=== PATIENT | male | born 1960 | race Caucasian/White ===

== ENCOUNTER 2022-08-12 14:49 | Outpatient (REF) | payer MEDICARE, SELFPAY ==
--- NOTE | ~2022-08-12 | XR_ITS ---
EXAMINATION: XR LUMBOSACRAL SPINE WITH OBLIQUES CLINICAL INFORMATION: Postlaminectomy syndrome COMPARISON: None available. TECHNIQUE: AP, both oblique, and lateral views of the lumbar spine. Lateral view of the lumbosacral junction. FINDINGS: There is normal lumbar lordosis. There are bilateral pedicle screws at L4, S1 and unilateral pedicle screw at L5 vertebra with interconnecting rods for posterior circulation. There are disc prostheses at #5ml/s1 disc level for fusion. Mild loss of L2-L3 disc level is noted. No visible fracture, lytic or sclerotic process. SI joints are symmetrical. There is minimal levoscoliosis centered at L3 vertebra. XR/XR lumbar spine 6V w bending IMPRESSION: 1. L4-L5 and L5-S1 disc prostheses and posterior hardware for fusion. No hardware malfunction seen. 2. Mild degenerative disc changes L2-L3 disc level. No visible acute fracture or dislocation seen.
== END 2022-08-12 14:50 | disposition home or self-care (01) ==
LOC: HO.XRAY 14:49
PROVIDERS: PCP Internal Medicine; Visit Provider Nurse Practitioner Family
DX: M51.36 Other intervertebral disc degeneration, lumbar region (principal); M54.16 Radiculopathy, lumbar region; M96.1 Postlaminectomy syndrome, not elsewhere classified; M48.061 Spinal stenosis, lumbar region without neurogenic claudication
CPT/HCPCS: 72114; 99202

== ENCOUNTER 2022-10-03 12:57 | Outpatient (AMB) | payer MEDICARE, SELFPAY ==
--- NOTE | 2022-10-03 13:04 | MHC.OFFVIS ---
Intake Vital Signs 10/03/22 13:10 Height 5 ft 7.5 in Weight 200 lb BMI 30.9 BP 150/92 H Blood Pressure Location Lt brachial Position Sitting Pulse 107 H Pulse Source Pulse Oximeter Pulse Oximetry (%) 95 Oxygen Delivery Method Room Air Intake Visit Reasons: Increasing Low Back Pain Intake Note: Pain today 12/03 Prop Drawer Required: No Accompanied by: Spouse Allergies duloxetine Allergy (Unknown, Verified 10/03/22 13:10) jittery venlafaxine [From Effexor] Allergy (Unknown, Verified 10/03/22 13:10) mood changes IV contrast Allergy (Unknown, Uncoded 08/12/22 15:13) Rash paxil Allergy (Unknown, Uncoded 08/12/22 15:13) Diarrhea HPI HPI Comments History of Present Illness Details Patient presents today for follow up for worsening right sided low back pain and increasing right leg pain. Patient completed his lumbar spine xray which showed L4-L5 and L5-S1 disc prostheses and posterior hardware for fusion. No hardware malfunction seen. Mild degenerative disc changes L2-L3 disc level. MRI lumbar spine has been rescheduled to 10/15/22 with IV contrast premedication. Patient reports increase in pain with any coughing, sneezing, movements or bowel movements. He had periods of severe back pain after short walking with his back locking up and requiring him to rest for 1-3 days. Reports progressive tingling, numbness and weakness of RLE. He rates his pain today at 9-10/10 and has not been able to sleep at night due to pain. Patient reports curled up sided position alleviates his pain a little bit. Denies any bladder or bowel incontinence or saddle anesthesia. PRIOR: Patient is a pleasant 61 years old male with history of failed back syndrome, s/p L4-L5 laminectomy in 2007, macro laminectomy and external neurolysis right L1-L5, laminectomies left L4-L5 and bilateral L5-S[place] [address] Hassan. MRI in 2013 showed postsurgical findings at L4 and L5 with mass effect on exiting L5 nerve root on the right, moderate to severe foraminal stenosis. At that time he saw Dr. Patton on 09/2008 and 08/2013 and no surgical intervention was recommended. Patient received epidural injections at [facility] in 2008 and 2013. Denies any recent trauma, injury or falls. Patient reports his back pain is axial and also radiates to his right lower extremity laterally affecting his right hip and right knee. Reports numbness, tingling and weakness of right lower extremity. Pain affects his daily activities, mobility, sleep, and quality of life. Pain is constant and frequently awakens him at night. Denies lumbar spine MRI imaging since 2013. He recently returned from [place] where he resided for 2 years. He does report at that time in [place] he fell by tripping on a rug and hit his right hip and shoulder and since then back pain has been increasing for the past 6 months. Patient reports lumbar xrays in [place] after fall were negative. These reports are not available today. Patient reports his balance and gait are weak and he would need to PT for strengthening. However due to significant back pain with radiculopathy, he is not able to participate in PT at this time. We will proceed with updating his back x-rays and MRI. Denies any fever, weight loss, bladder or bowel incontinence or saddle anesthesia. Location Low back pain radiating into RLE laterally Duration Chronic pain worsening for past 5 months Characteristics of symptom or complaint Cramping, shooting, numbness, tingling, aching Aggravating or associated factors Walking, prolonged sitting or standing, changing positions Relieving factors Gabapentin, heat therapy, activity modifications, Treatment Back injections, physical therapy, cane [facility] Medical History (Updated 10/03/22 @ 13:43 by LIBBY Diggs) Adenoma Arthritis Failed back syndrome GERD (gastroesophageal reflux disease) Herpes zoster History of cannabis abuse History of shingles Hypertension Spondylosis Surgical History H/O laminectomy Family History Father Lung cancer Family/Other Colon cancer Social History Alcohol intake: current Alcohol intake frequency: holidays/special occasions only Tobacco use type: Cigarette Cigarette Packs Per Day: 1 Review of Systems Const All systems reviewed & are unremarkable except as noted in HPI and below Physical Exam Vital Signs: Last Vital Signs Pulse 107 H 10/03/22 13:10 BP 150/92 H 10/03/22 13:10 Pulse Ox 95 10/03/22 13:10 Oxygen Delivery Method Room Air 10/03/22 13:10 BMI result Body Mass Index 30.9 General: Appears afebrile. Alert and oriented. Mood and affect appropriate. Follows and participates in conversation appropriately. Respiratory effort is unlabored. No cough. Able to transition from sit to stand unassisted. Uses cane with ambulation. Back/Spine/Pelvis Other: Antalgic gait with limping. Utilizes cane with transfers and walking. Lumbar flexion and extension reproduce moderate to severe pain, worse with bending. Limited ROM due to pain. Demonstrates 5/5 left and 4/5 right strength of quadriceps bilaterally as well as flexion/dorsiflexion of bilateral feet against resistance. 2+ pedal pulses bilaterally. Seated straight leg rise with dorsiflexion positive on the right. Valsalva maneuver positive. Unable to proceed with exam due to pain exacerbation. Cervical Spine: cervical muscular tenderness and No Cervical spine tenderness Thoracic/Lumbar Spine: thoracic and lumbar spine normal to inspection, Thoracic/lumbar spine scar(s), Lasegue's sign positive on the right and localized, pain with thoraco-lumbar ROM, paraspinal muscle tenderness on the right greater than left, thoraco-lumbar ROM limited, No thoracic spinal tenderness and lumbar spinal tenderness Pelvis: no sciatic notch tenderness Sacroiliac joints: bilaterally nontender Results Reviewed Results Reviewed: XR LUMBOSACRAL SPINE WITH OBLIQUES 08/12/22 FINDINGS: There is normal lumbar lordosis. There are bilateral pedicle screws at L4, S1 and unilateral pedicle screw at L5 vertebra with interconnecting rods for posterior circulation. There are disc prostheses at #5ml/s1 disc level for fusion. Mild loss of L2-L3 disc level is noted. No visible fracture, lytic or sclerotic process. SI joints are symmetrical. There is minimal levoscoliosis centered at L3 vertebra. IMPRESSION: 1. L4-L5 and L5-S1 disc prostheses and posterior hardware for fusion. No hardware malfunction seen. 2. Mild degenerative disc changes L2-L3 disc level. No visible acute fracture or dislocation seen. Per referral note: lumbar spine MRI in 2013 showed post-surgical findings at L4 and L5 with mass effect on exiting L5 nerve root on the right, moderate to severe foraminal stenosis. Assessment & Plan Assessment & Plan (1) Lumbar foraminal stenosis: Code(s): M48.061 - Spinal stenosis, lumbar region without neurogenic claudication (2) Lumbar radicular pain: Code(s): M54.16 - Radiculopathy, lumbar region (3) Spinal stenosis, lumbar region with neurogenic claudication: Code(s): M48.062 - Spinal stenosis, lumbar region with neurogenic claudication (4) Lumbar spondylosis: Code(s): M47.816 - Spondylosis without myelopathy or radiculopathy, lumbar region Plan 1. Lumbar spine imaging reviewed with patient and his . 2. Proceed with MRI of the lumbar spine to assess for neural integrity and compression as scheduled on 10/15/22. IV contrast premedication reviewed with patient. Will refer to [facility] for progressively worsening back and right leg pain. 3. Scripts provided short script for oxycodone for severe pain only. Side effects reviewed with patient. Continue lidocaine patches, cyclobenzaprine, heat therapy, activity modifications. 4. Patient is aware to call if pain worsens or if he develops any red flag symptoms to seek emergency care. Patient denies any cauda equina syndrome symptoms at this time. All questions were answered and the patient is in agreement with the treatment plan. Will follow up for MRI or sooner if needed. Orders: Referrals Neurosurgery Referral M48.061 - Spinal stenosis, lumbar region without neurogenic claudication, M48.062 - Spinal stenosis, lumbar region with neurogenic claudication, M54.16 - Radiculopathy, lumbar region Medications: New oxycodone Partial Fill upon patient request. 5 mg PO BID 5 days PRN 10 tabs 0RF pain, severe M48.061 - Spinal stenosis, lumbar region without neurogenic claudication Refilled cyclobenzaprine 5 - 10 mg (1 - 2 x 5 mg) PO BEDTIME 30 days PRN 60 tabs 1RF muscle spasm M51.36 - Other intervertebral disc degeneration, lumbar region, M54.16 - Radiculopathy, lumbar region, M96.1 - Postlaminectomy syndrome, not elsewhere classified Discontinued methylprednisolone (Medrol (Jose)) Discontinued Reason: Patient Completed Course PO PER PKG DIR 21 ea 0RF pain M51.36 - Other intervertebral disc degeneration, lumbar region, M54.16 - Radiculopathy, lumbar region, M96.1 - Postlaminectomy syndrome, not elsewhere classified Coding Level of Care Code Est Pt Level 4 (74959) Diagnoses Lumbar foraminal stenosis M48.061 Lumbar radicular pain M54.16 Spinal stenosis, lumbar region with neurogenic claudication M48.062 Lumbar spondylosis M47.816
[2022-10-03 13:10] VITALS: BP 150/92; PULSE 107; O2SAT 95; BMI 30.9
== END 2022-10-03 13:24 | disposition home or self-care (01) ==
PROVIDERS: PCP Internal Medicine; Visit Provider Nurse Practitioner Family
DX: M48.061 Spinal stenosis, lumbar region without neurogenic claudication (principal); M54.16 Radiculopathy, lumbar region; M48.062 Spinal stenosis, lumbar region with neurogenic claudication; M47.816 Spondylosis without myelopathy or radiculopathy, lumbar region
CPT/HCPCS: 99214

== ENCOUNTER → 2022-10-03 12:57 | Outpatient (BNVA) | payer MEDICARE, SELFPAY | PROVIDERS: PCP Internal Medicine; Visit Provider Nurse Practitioner Family | DX: M48.062 Spinal stenosis, lumbar region with neurogenic claudication (principal); M47.16 Other spondylosis with myelopathy, lumbar region | CPT/HCPCS: 99212 ==

== ENCOUNTER 2022-10-15 14:03 | Outpatient (REF) | payer MEDICARE, SELFPAY | END 2022-10-15 14:04 | disposition home or self-care (01) | LOC: HO.MRI 14:03 | PROVIDERS: PCP Internal Medicine; Visit Provider Nurse Practitioner Family | DX: Z13.89 Encounter for screening for other disorder (principal) ==

== ENCOUNTER 2022-11-29 07:18 | Outpatient (REF) | payer OTHER, SELFPAY | END 2022-11-29 07:19 | disposition home or self-care (01) | LOC: HO.LAB 07:18 | PROVIDERS: PCP Internal Medicine; Visit Provider Internal Medicine | DX: Z12.5 Encounter for screening for malignant neoplasm of prostate (principal); E78.00 Pure hypercholesterolemia, unspecified; I10 Essential (primary) hypertension; M51.16 Intervertebral disc disorders with radiculopathy, lumbar region; M75.41 Impingement syndrome of right shoulder; Z86.010 Personal history of colon polyps | CPT/HCPCS: 36415; 80053; 80061; 84153; 84443; 85025 ==

== ENCOUNTER 2024-04-27 06:52 | Outpatient (REF) | payer MEDICARE, SELFPAY ==
--- OUTSIDE RECORDS SUMMARY | 2024-04-27 06:56 | XMS_ITS | Clinical Summary ---
[facility] Address [address] [place] [address] Care Team Providers Care Multi Care Technician Name Role Phone Maribeth Ireland MD Primary Care Provider Social History Tobacco Use Types Packs/Day Years Used Date Smoking Tobacco: Never Assessed Sex and Gender Information Value Date Recorded Sex Assigned at Not on file Gender Identity Not on file Sexual Orientation Not on file Plan of Treatment Health Maintenance Due Date Last Done Comments Hepatitis C Screening 1960 COVID-19 Vaccine (#1) 04/21/1960 Depression Screening 1971 Preventative Health Evaluation 10/19/1977 DTap / Tdap / Td (1 - Tdap) 10/19/1978 Colon Cancer Screening (Colonoscopy) 10/19/2004 Shingrix-Zoster Vaccine (1 of 2) 10/19/2009 Influenza Vaccine (#1) 2023 Pneumococcal Vaccine (1 of 1 - PCV) 10/19/2024 RSV Adult > 60+ Yrs or Pregn ant (1 - 1-dose 75+ series) 10/19/2034 Hepatitis B Vaccines Aged Out No long er eligible based on patient's age to complete this topic Pneumococcal Vaccine Aged Out No long er eligible based on patient's age to complete this topic RSV Ped < 20 months Aged Out No longe r eligible based on patient's age to complete this topic Care Teams Multi Care Technician Relationship Specialty Start Date End Date Maribeth Ireland MD [address] [id number] PCP - General Internal Medicine 10/01/19
--- OUTSIDE RECORDS SUMMARY | 2024-04-27 06:56 | XMS_ITS | Clinical Summary ---
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 06/25/2023 Active rosuvastatin (CRESTOR) 40 mg tablet TAKE 1 TABLET BY MOUTH AT BEDTIME 06/25/2023 Active sertraline (ZOLOFT) 50 mg tablet Take 1 Tablet by mouth daily. 06/25/2023 Active nicotine (NICODERM CQ) 14 mg/[address] 1 Patch onto the skin every 24 hours. Active gabapentin (NEURONTIN) 800 mg tablet Take 800 mg by mouth 3 times daily. Active multivitamin with minerals tablet Take 1 tablet by mouth 1 (one) time each day. Active Active Problems Problem Noted Date Diagnosed Date Bilateral hip pain 06/24/2023 Overview (11/25/2023): Last Assessment & Plan: Mr. Jean describes bilateral hip pain. He had some reproduction of his pain with palpation of the greater trochanters but also had significant reproduction of his pain with external rotation of each hip. Get some x-rays of the hips. If there are significant findings on the x-rays, we can talk about a referral to orthopedics. Bilateral sacroiliitis 06/24/2023 Overview (11/25/2023): Last Assessment & Plan: Mr. Weiss describes pain in both buttocks with radiations to the hips and posterolateral thighs. He had some reproduction of his pain with palpation of the SI joints. He also had a positive Yemi's maneuver, a positive Gaenslen's test, and a positive thigh thrust test. I think he would benefit from an SI joint injection. We will refer him to physiatry for consideration of an injection. Chronic low back pain with bilateral sciatica Overview (11/25/2023): Last Assessment & Plan: Mr. Weiss describes low back pain with radiation to both buttocks, hips, and posterolateral thighs. X-rays of the lumbar spine from today show evidence of prior L4-S1 fusion. There is no instability. The hardware all appears to be intact. I gave him a prescription for physical therapy and we are going to refer him to physiatry. He will follow-up with us in about 6 weeks for repeat evaluation. If his pain is persistent, we can consider an MRI of the lumbar spine at that time. Trochanteric bursitis of both hips 06/24/2023 Overview (11/25/2023): Last Assessment & Plan: Mr. Weiss describes pain in both hips with radiation down the posterolateral thighs. This pain was reproduced with palpation of the greater trochanters. I will send him for x-rays of the hips and then we will request a referral to physiatry. Pseudoarthrosis of lumbar spine 11/16/2021 Overview (11/25/2023): Last Assessment & Plan: Mr. Fregoso is here for a 1 year follow-up after his revision of an L4-S1 fusion on 11/13/2020. This was done for pseudoarthrosis with loosening of hardware on the right-hand side. He has had improvements but is never pain-free. His walking tolerance is 1 to 2 miles when the back pain but significantly increases. Occasionally there is pain to his legs right worse than left which may cause him to lose balance but he denies ever falling. He has remained smoke-free and takes gabapentin. On exam, seated SLR is positive on the right for moderate pain. Strength is 5/5, sensation to light touch intact, gait is steady. Review of the lumbar spine CT from today shows all hardware to be intact without haloing. There is some bridging bone through the interbody graft at L4-5 and nearly bridging at L5-S1. There appears to be some posterolateral bone as well. There is diffuse spondylosis throughout. I encouraged Mr. Fregoso to continue daily walking for exercise, back and leg strengthening. He can add Tylenol or use a heating pad after the walks. There is no new focus at which I would recommend surgery but, he does have diffuse degenerative disc disease and is likely to always have some back pain. He is welcome to contact us if there are any significant changes or if he has concerns. Immunizations Name Administration Dates Next Due Influenza trivalent, with pr eservative (Fluzone; Afluria) 6mo and older 01/23/2020 Surgical History Surgery Date Site/Laterality Comments BACK SURGERY PROCEDURE: HISTORICAL BACK SURGERY; COMMENT: 2007 L4-5, & L4-S1 with Dr. Hassan BACK SURGERY 10/25/2019 PROCEDURE: HISTORICAL BACK SURGERY; COMMENT: L4-5 L5-S1 TLIF OTHER SURGICAL HISTORY 11/13/2020 PROCEDURE: ANESTHESIA FOR BACK SKIN SURGERY; COMMENT: exploration and revision L4-S1 Medical History Medical History Date Comments Depressive disorder DX:Depressiv e disorder Leg weakness DX:Leg weakness Joint pain DX:Joint pain Rheumatoid arthritis (CMS/HCC) D X:Rheumatoid arthritis (HCC) Leg pain DX:Leg pain Social History Tobacco Use Types Packs/Day Years Used Date Smoking Tobacco: Former Smokeless Tobacco: Never Sex and Gender Information Value Date Recorded Sex Assigned at Not on file Legal Sex Male 1:47 AM EST Gender Identity Not on file Sexual Orientation Not on file Obstetrics History Last Filed Vital Signs Vital Sign Reading Time Taken Comments Blood Pressure 140/80 04/03/2023 1:32 PM EST Pulse 75 04/03/2023 1:32 PM EST Temperature - - Respiratory Rate - - Oxygen Saturation - - Inhaled Oxygen Concentration - - Weight 90.7 kg (200 lb) 12/25/2023 11:00 AM EDT Height 171.5 cm (5' 7.5 ) 12/25/2023 11:00 AM ED T Body Mass Index 30.86 12/25/2023 11:00 AM EDT Plan of Treatment Health Maintenance Due Date Last Done Comments DTaP,Tdap,and Td Vaccines (1 - Tdap) 10/19/1978 Pneumococcal Vaccine: 50+ Years (1 of 1 - PCV) 10/19/2009 Zoster Vaccines (1 of 2) 10/19/2009 Cholesterol Screening (Lipid Panel) 01/27/2022 Colorectal Cancer Screening: Colonoscopy 01/27/2022 Depression Screening 01/27/2022 HIV Screening 01/27/2022 Hepatitis C Screening 01/27/2022 Medicare Annual Wellness Visit 01/27/2022 Social Influencers of Health Screening 01/27/2022 COVID-19 Vaccine (3 - 2023-2 5 season) 2023 06/22/2020, 05/25/2020 Influenza Vaccine (#1) 2023 01/23/2020 RSV Immunization Patients 60 + Years Old (1 - 1-dose 75+ series) 10/19/2034 HIB Vaccines Aged Out No longer eligi ble based on patient's age to complete this topic HPV Vaccines Aged Out No longer eligi ble based on patient's age to complete this topic Hepatitis A Vaccines Aged Out No long er eligible based on patient's age to complete this topic Hepatitis B Vaccines Aged Out No long er eligible based on patient's age to complete this topic IPV Vaccines Aged Out No longer eligi ble based on patient's age to complete this topic MMR Vaccines Aged Out No longer eligi ble based on patient's age to complete this topic Meningococcal ACWY Vaccine Aged Out N o longer eligible based on patient's age to complete this topic Meningococcal B Vacine Aged Out No lo nger eligible based on patient's age to complete this topic Pneumococcal Vaccine: Pediatrics (0 to 5 Years) and At-Risk Patients (6 to 64 Years) Aged Out No longer eligible b ased on patient's age to complete this topic RSV Immunization Patients Under 20 months Aged Out No longer eligible b ased on patient's age to complete this topic Varicella Vaccines Aged Out No longer eligible based on patient's age to complete this topic Insurance [employer] MED[employer]ARE ADVANTAGE Care Teams 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
--- OUTSIDE RECORDS SUMMARY | 2024-04-27 06:57 | XMS_ITS | Data Portability ---
Author Organization [facility] PAIN OFFICE Address [address],[facility] [address] [place] [address] Care Team Providers Care Network And Threat Support Specialist Name Role Phone MAXIME SRIDHAR Referring Provider HILARIO PETE Primary Care Provider [phone] Assessment Encounter Date Assessment Date Assessment LastModified by Organization Details LastModified Time 01/20/2017 01/20/2017 Sathish Weiss is a 56 year old man with low back pain radiating into both lower extremities, right is greater than left with numbness in his right lower extremity. He is S/P two back surgreies with a recent exacerbation of his pain. On exam ,he has pain on flexion. Straight leg raising test is positive on the right. 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 Trial of Lumbar epidural steroid injections under fluoroscopic guidance was recommended. The risks and benefits of the procedure were discussed in detail. He wishes to proceed. An appointment has been booked for the same. 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 [email or web address] Not available 01/26/2017 11:12:51 03/11/2017 03/11/2017 Sathish Weiss is a 56 year old man with low back pain radiating into both lower extremities, right is greater than left with numbness in his right lower extremity. He is S/P two back surgeries with a recent exacerbation of his pain. On exam ,he has pain on flexion. Straight leg raising test is positive on the right. 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 He is here for a trial of Lumbar epidural steroid injections under fluoroscopic guidance . The risks and benefits of the procedure were discussed in detail. He wishes to proceed. He needs to follow up in four weeks to assess the benefits of the injection. [email or web address] Not available 03/13/2017 11:06:29 Plan of Treatment Reminders Order Date Submit Date Provider Last Modified By Organization Details Last Modified Time Details Appointments None record ed. Lab None record ed. Referral None record ed. Procedures None record ed. Surgeries None record ed. Imaging None record ed. Medication Orders None record ed. Patient TargetsNo targets recorded. Patient Instructions Encounter Date Encounter Id Patient Instructions Last Modified By Organization Details Last Modified Time 01/20/2017 [id number] He was advised against bed rest lasting longer than four days and to continue activities as tolerated. Benefits of smoking cessation were discussed with him. [email or web address] Not available 01/26/2017 11:13:42 03/11/2017 [id number] He was advised against bed rest lasting longer than four days and to continue activities as tolerated. Benefits of smoking cessation were discussed with him. [email or web address] Not available 03/13/2017 11:05:28 Reason for Referral None Reported. Problems Name Problem SNOMED Code Status Onset Date Resolution Date Notes Provider Name and Address Organization Details Recorded Time Lumbar post-laminecto my syndrome 939346898 Active 2016 Ankit palmer MD [address] , [address], [place], [address], [place] [facility] 11:14:53 Lumbar radiculopathy 070300301 Active 2016 Ankit palmer MD [address] , [address], [place], [address], [place] [facility] 11:14:54 Displacement of lumbar intervertebral disc without myelopathy 36243643 Active 2016 Ankit palmer MD [address] , [address], [place], [address], [place] [facility] 7 11:14:55 Problem Notes None recorded. Procedures Surgical History Date Name Laterality Status Provider Name and Address Organization Details Recorded Time 03/11/19 18 Lumbar Epidural steroid injection under fluoroscopic guidance completed Ankit Crowley MD [address] [facility] [address] [facility] , [address], [place], [address], [place] [facility] 03/13/2017 11:04:41 Other completed Mya Mast [place] [facility] 01/20/2017 14:30:53 Other completed Myarafael Mast [place] [facility] 01/20/2017 14:31:39 Other completed Myarafael Clementeer [place] [facility] 01/20/2017 14:32:43 Back Surgery completed Myarafael Clementeer [place] [facility] 01/20/2017 14:34:14 Imaging Results None recorded. Procedure Notes None recorded. Medical Equipment None Reported. Allergies No known drug allergies Medications Name Sig Start Date Stop Date Status Note LastModified by Organization Details LastModified Time cyclobenzapri ne 10 mg tablet active Not Available Not Available Not Available venlafaxine ER 75 mg capsule,exten ded release 24 hr 01/20 completed Not Available Not Available Not Available venlafaxine ER 150 mg capsule,exten ded release 24 hr 01/20 completed Not Available Not Available Not Available acetaminophen 300 mg-codeine 30 mg tablet 01/20 completed Not Available Not Available Not Available ciprofloxacin 500 mg tablet 01/20 completed Not Available Not Available Not Available tramadol 50 mg tablet 01/20 completed Not Available Not Available Not Available oxycodone-sowmya taminophen 5 mg-325 mg tablet 01/20 completed Not Available Not Available Not Available tamsulosin 0.4 mg capsule 01/20 completed Not Available Not Available Not Available gabapentin 800 mg tablet active 1 tab at bedtime Not Available Not Available Not Available naproxen sodium 550 mg tablet 01/20 completed Not Available Not Available Not Available dexamethasone 4 mg tablet 01/20 completed Not Available Not Available Not Available methylprednis olone 4 mg tablets in a dose pack 01/20 completed Not Available Not Available Not Available ondansetron 4 mg disintegratin g tablet 01/20 completed Not Available Not Available Not Available naproxen 500 mg tablet TK 1 T PO BID 01/20 completed Not Available Not Available Not Available Vitamin C active Not Available Not Edie ilable Not Available vitamin B complex active Not Available Not Available Not Available Multi Vitamin active Not Available Not Available Not Available Vitals Date Recorded Body height Body mass index (BMI) Body weight Heart rate Oxygen saturation Oxygen saturation in Arterial blood by Pulse oximetry Systolic blood pressure Diastolic blood pressure Provider Name and Address Organization Details Last Updated DateTime 7 171.45 cm 30.2 kg/m2 89705.1 g 78 /min 98 % 98 % 128 mm[Hg] 88 mm[Hg] Mya Mast [place] [facility] 7 14:19:29 Date Recorded Body height Oxygen saturation Oxygen saturation in Arterial blood by Pulse oximetry Heart rate Systolic blood pressure Diastolic blood pressure Provider Name and Address Organization Details Last Updated DateTime 8 171.45 cm 95 % 95 % 83 /min 121 mm[Hg] 53 mm[Hg] Mya Mast [place] [facility] 8 15:51:17 Social History Question Answer Notes LastModified by Organizat ion Details LastModified Time Tobacco Smoking Status Current Every Day Smoker Not [facility] 12/10/2019 03:16:11 What Is Your Level Of Alcohol Consumption? Occasional [id number] Information not available 12/10/2019 Are You Currently Employed? No Disability [id number] Information not available 12/10/2019 Which Illicit Or Recreational Drugs Have You Used? No [id number] Information not available 12/10/2019 Education 9 Information no t available 01/20/2017 Live Alone Or With Others? Alone Information not available 01/20/2017 Marital Status Single [email or web address] Informatio n not available 01/20/2017 What Was The Date Of Your Most Recent Tobacco Screening? 03/13/2017 [id number] Information not available 12/10/2019 How Much Tobacco Do You Smoke? 1 PPD [id number] Information not available 12/10/2019 How Many Years Have You Smoked Tobacco? 30 [id number] Information not available 12/10/2019 Sex: Unknown Functional Status None recorded. Mental Status None recorded. Family History Relationship Description Onset Age of this Age Resolved Age Notes LastModified by Organization Details LastModified Time Father Malignant neoplastic disease [email or web address] Not available 2016 14:27:37 Medical History Condition Response Anxiety Disorder Y Arthritis Y Depression Y Past Encounters Encounter ID Performer Location Encounter Start Date Encounter Closed Date Diagnosis/Indication Diagnosis SNOMED-CT Code Diagnosis ICD10 Code Diagnosis Note [id number] Ankit Crowley MD PAIN OFFICE [address] [place] [address] 01/20/2017 14:06:29 01/26/2017 11:15:36 Lumbar post-laminectomy syndrome 946845179 M96.1 Lumbar radiculopathy 128 218976 M54.16 Displaceme nt of lumbar intervertebral disc without myelopathy 01759565 M51.26 [id number] Ankit Crowley MD PAIN OFFICE [address] [place] [address] 03/11/2017 15:12:41 03/13/2017 11:15:40 Lumbar post-laminectomy syndrome 900379784 M96.1 Lumbar radiculopathy 128 M54.16 Displaceme nt of lumbar intervertebral disc without myelopathy 75657578 M51.26 Health Concerns Section Related Observation LastModified by Organization Detai ls LastModified Time None Recorded Concern Status LastModified by Organization Details LastModified Time None Recorded Advance Directives Directive None Recorded Payers Encounter Date Sequence Insurance Name Policy Number Policy Perez Covered Member ID Perez Member ID Guarantor Name 01/20/2017 1 [facility] (MEDICARE REPLACEMENT/A DVANTAGE - HMO) [id number] Sathish Weiss [id number] Sathish Weiss 03/11/2017 1 [facility] (MEDICARE REPLACEMENT/A DVANTAGE - HMO) [id number] Sathish Paigeeves [id number] Sathish Weiss Notes Date Note Type Note Provider Name and Address Organization Details Recorded Time 01/20/2017 text/html Sathish Weiss is a 56 year old man with complaints of low back pain radiating into both lower extremities, right is greater than left with numbness and tingling. He has been having low back pain since 2006. He is S/P two back surgeries. Ist back surgery was in 2006 and second was in 2014. he has been having an exacerbation of his pain for the past three months. He describes the pain as a sharp stabbing pain which radiates into both lower extremities, right is greater than left with numbness and tingling. Current pain level is 5-10/10. Pain is aggravated by bending over and walking. Nothing relieves the pain. Pain awakens him multiple times at night. He has no history of bladder or bowel incontinence.He had a course of physical therapy which did not help. He is doing hme exercise program with persistent pain.He had a course of percocet and cyclobenzaprine which helped a little. He had no pain benefit with tramadol.MRI Lumbar spine shows prior right L4-5 hemilaminectomy , multilevel level disc desiccation with multilevel neuro foraminal narrowing , severe on the right and moderate on the left at L 4-5 level Ankit Crowley MD [address] [facility] , [address], [place], [address], [facility] 02/03/2017 09:10:44 03/11/2017 text/html He is here today for a lumbar epidural steroid injection under fluroscopic guidance. Ankit Crowley MD [address] [facility] [address] [facility] [address] [facility] , [address], [place], [address], [facility] 03/18/2017 16:05:02
[2024-04-27 07:23] LABS: MANUAL DIFF FLAG NO
[2024-04-27 08:25] LABS: Basophils Percent Auto 0.5 % (0-2); Eosinophils Absolute Auto 0.1 X10*3/uL (0.0-0.4); Eosinophils Percent Auto 1.2 % (0-4); Hematocrit 46.2 % (42.0-52.0); Hemoglobin 15.3 g/dl (14.0-18.0); Imm Gran Abs Auto 0.03 X10*3/uL (0.00-0.03); Imm Gran Pct Auto 0.4 % (0.0-0.4); Lymphocytes Absolute Auto 2.1 X10*3/uL (1.2-4.9); Lymphocytes Percent Auto 24.4 % (20-40); Mean Corpuscular HGB Conc 33.1 g/dl (31.0-36.0); Mean Corpuscular Hemoglobin 30.2 pg (27.0-33.0); Mean Corpuscular Volume 91.1 fL (80.0-98.0); Mean Platelet Volume 9.2 fL (9.4-12.4); Monocytes Absolute Auto 0.8 X10*3/uL (0.1-1.2); Neutrophils Absolute Auto 5.5 x10*3/uL (2.0-8.3); Neutrophils Percent Auto 64.5 % (45-73); Platelet Count 288 X10*3/uL (160-400); Red Blood Count 5.07 X10*6/uL (4.60-5.80); Red Cell Distribution Width 14.4 % (11.0-16.0); White Blood Count 8.5 X10*3/uL (4.8-10.8)
[2024-04-27 09:07] LABS: Alanine Aminotransferase 20 U/L (0-40); Albumin Level 4.2 g/dL (3.5-5.0); Alkaline Phosphatase 101 U/L (39-117); Anion Gap 12 (12-20); Aspartate Amino Transferase 23 U/L (5-37); Bilirubin Total 0.3 mg/dL (0.0-1.0); Blood Urea Nitrogen 12 mg/dL (9-16); Calcium 9.6 mg/dL (8.4-10.2); Carbon Dioxide 28 mmol/L (22-29); Chloride 108 mmol/L (96-108); Cholesterol 191 mg/dL (<200); Estimated Glomerular Filt Rate > 60; Glucose Random 106 mg/dL (60-115); HDL Cholesterol 49 mg/dL (>40); LDL Cholesterol Calculated 128 mg/dL (<100); Potassium 5.2 mmol/L (3.3-5.1); Sodium 143 mmol/L (135-145); Total Protein 7.3 g/dL (6.5-8.0); Triglycerides 71 mg/dL (<150)
[2024-04-27 09:25] LABS: Ferritin 87 ng/mL (20-250); Prostate Specific Antigen Scr 0.44 ng/mL (<0.05-4.0)
== END 2024-04-27 06:53 | disposition home or self-care (01) ==
LOC: HO.LAB 06:52
PROVIDERS: PCP Internal Medicine; Visit Provider Internal Medicine
DX: E78.00 Pure hypercholesterolemia, unspecified (principal); F32.5 Major depressive disorder, single episode, in full remission; I10 Essential (primary) hypertension; L29.9 Pruritus, unspecified; Z86.0101 Personal history of adenomatous and serrated colon polyps; Z12.5 Encounter for screening for malignant neoplasm of prostate
CPT/HCPCS: 36415; 80053; 80061; 82728; 84153; 85025